=== PATIENT | female | born 1985 | race Caucasian/White ===

== ENCOUNTER → 2016-08-13 | Outpatient (CLI) | payer OTHER ==
[~2016-08-13] MED LIST: BAYE325T12 PO; PERC5TAB12 PO
--- NOTE | 2016-08-13 12:23 | REP ---
Obstetric ultrasound for anatomy: There is a single intrauterine gestation in a breech presentation. There is movement and cardiac activity, the heart rate is 153 beats per minute. The placenta is anterior. There is no placenta previa or abruptio. The placenta demonstrates grade zero maturity. The amniotic fluid volume subjectively is normal. The cervix measures 5.2 cm length. By today's ultrasound the gestational age is 18 weeks 3 days with an KHUSHBU of 01/11/2017. By LMP gestational age is 19 weeks 4 days. The weight is 276 grams (0 pounds, 9 ounces). This is the 30th percentile for 19 weeks 4 days. The following anatomic structures are identified and are unremarkable: Cranium, choroid plexus, cavum septum pellucidum, cerebellum, nuchal fold, facial profile, lungs, four-chamber heart, cardiac right and left ventricular outflow tracts, diaphragm, stomach, cord insertion, three-vessel cord, kidneys, bladder, spine and upper and lower extremities. The lip is not adequately demonstrated. Otherwise, there are no anomalies. Signed by Kleber Vergara MD 08/13/2016 12:15 P
== END ==
LOC: M RAD 11:00
PROVIDERS: ATTEND Advanced Practice Midwife
DX: Z36 Encounter for antenatal screening of mother (principal)

== ENCOUNTER → 2016-09-10 | Outpatient (REF) | payer OTHER | LOC: M LAB REF 12:48 | PROVIDERS: ATTEND Advanced Practice Midwife | DX: Z34.82 Encounter for supervision of other normal pregnancy, second trimester (principal) ==

== ENCOUNTER → 2016-09-17 | Outpatient (CLI) | payer OTHER ==
--- NOTE | 2016-09-17 16:51 | REP ---
Obstetric ultrasound for anatomy: There is a single intrauterine gestation in a breech presentation. There is motion. There is cardiac activity with a heart rate of 100.6 beats per minute. The placenta is anterior. There is no placenta previa or abruptio. Placenta demonstrates grade zero maturity. The amniotic fluid volume subjectively is normal. The cervix is 4.8 cm in length. Maternal adnexa and cul-de-sac are unremarkable. By today's ultrasound gestational age is 20-week 3 weeks 5 days with an KHUSHBU of 01/09/2017. According to the first ultrasound during this gestation the gestational age is 23 weeks 3 days. By LMP gestational age is 24 weeks 4 days. weight is 599 grams (1 pound, 5 ounces). This is the 14th percentile for 24 weeks 4 days (gestational age by LMP). The following anatomic structures are identified and are unremarkable: upper lip, cranium, choroid plexus, cavum septum pellucidum, intracranial lateral ventricles, cerebellum, facial profile, lungs, diaphragm, stomach, cord insertion, three-vessel cord, kidneys, bladder, spine and upper lower extremities. Suboptimally demonstrated are the four-chamber view of the heart and the cardiac left ventricular outflow tract. However, the structures are identified previously and unremarkable. Impression: There are no anomalies. On the prior study the upper lip was suboptimally demonstrated but is adequately demonstrated and unremarkable. The remainder of the anatomy previously was unremarkable. Signed by Kleber Vergara MD 09/17/2016 04:42 P
== END ==
LOC: M RAD 13:59
PROVIDERS: ATTEND Advanced Practice Midwife
DX: Z36 Encounter for antenatal screening of mother (principal)

== ENCOUNTER → 2016-10-08 | Outpatient (CLI) | payer OTHER ==
[2016-10-08 13:26] LABS: BASO % 0.3 % (0.0-1.0); EOS % 0.5 % (0.0-3.0); LARGE UNSTAINED CELL # 0.1 K/mm3 (0.0-0.4); LARGE UNSTAINED CELL % 0.7 % (0.0-4.0); LYMPH # 0.9 K/mm3 (1.5-6.5); LYMPH % 9.8 % (24.0-44.0); MEAN CORPUSCULAR HEMOGLOBIN 29.9 pg (27.0-33.0); MEAN CORPUSCULAR HGB CONC 33.6 g/dl (32.0-36.5); MONO # 0.3 K/mm3 (0.0-0.8); MONO % 3.8 % (0.0-5.0); NEUTROPHILS # 7.6 K/mm3 (1.8-7.7); PLATELET COUNT, AUTOMATED 156 k/mm3 (150-450); RED CELL DISTRIBUTION WIDTH 13.3 % (11.5-14.5)
== END ==
LOC: M SMT 08:17
PROVIDERS: ATTEND Advanced Practice Midwife
DX: Z34.83 Encounter for supervision of other normal pregnancy, third trimester (principal)

== ENCOUNTER → 2016-12-10 | Outpatient (REF) | payer OTHER | LOC: M LAB REF 17:04 | PROVIDERS: ATTEND Advanced Practice Midwife | DX: Z34.83 Encounter for supervision of other normal pregnancy, third trimester (principal) ==

== ENCOUNTER → 2016-12-14 | Outpatient (CLI) | payer OTHER ==
--- NOTE | 2016-12-14 14:31 | REP ---
OB ULTRASOUND: Real-time sonographic evaluation of the gravid uterus performed. There is a single living intrauterine gestation with an estimated gestational age is 37 weeks 1 day with EDC 01/03/2017. Today's measurements indicate appropriate growth. Biometry and Growth: BPD 85 mm = 34 weeks 1 day, 7th percentile HC 322 mm = 36 weeks 3 days, 38th percentile AC 317 mm = 35 weeks 4 days, 27th percentile FL 67 mm = 34 weeks 4 days, 13th percentile HC/AC ratio 1.02 within normal range. Estimated weight 2634 grams, 24th percentile. The upper lip, four chamber heart, stomach, bladder and spine are visualized and are grossly unremarkable, as are the kidneys. Cervical length: Closed and measures 3.2 cm in length. heart rate: 132 beats per minute. position: Vertex. Placenta: Anterior and grade 2 with no previa or abruption. Amniotic fluid: Amniotic fluid appears within normal limits, RAMY 13.2 within normal range of 7.5 to 24.4. S/D ratio 2.24 within normal range of 1.6 to 2.6. RI: 0.55 is slightly below normal range of 0.59 to 0.75. Signed by Kleber Carrasco MD 12/14/2016 05:21 P
== END ==
LOC: M RAD 12:54
PROVIDERS: ATTEND Advanced Practice Midwife
DX: Z36.2 Encounter for other antenatal screening follow-up (principal)

== ENCOUNTER 2017-01-02 17:04 | Outpatient (CLI) | payer OTHER ==
[~2017-01-02] VITALS: Ht 162.6 cm; Wt 83.4 kg
[2017-01-02 17:16] VITALS: BP 125/76
[2017-01-02 19:15] VITALS: BP 124/68
[2017-01-02 19:52] VITALS: BP 132/73
== END 2017-01-02 20:05 | disposition home or self-care (01) ==
LOC: M LDO 17:04
PROVIDERS: ATTEND Obstetrics & Gynecology
DX: O47.1 False labor at or after 37 completed weeks of gestation (principal); Z3A.39 39 weeks gestation of pregnancy

== ENCOUNTER 2017-01-10 09:09 | Inpatient (IN) | payer OTHER ==
[~2017-01-10] VITALS: Ht 162.6 cm; Wt 84.6 kg
[2017-01-10] VITALS (22 sets, daily range): BP systolic 104–134; BP diastolic 61–77
--- NOTE | 2017-01-10 10:51 | HPEPDOC ---
[facility] Medical History & Physical Date of Admission Jan 10, [address] Karin Sanchez Attending Physician: Doris Funez CNM History and Physical HISTORY & PHYSICAL EXAMINATION DATE OF ADMISSION: 01/10/2017 30-year-old, 3, para 1011, at 41 0/7 weeks gestation by last menstrual period of 03/29/2016 for an estimated date of delivery of 01/03/2017 presents for induction of labor for post dates. Upon evaluation, she is 2 cm, 70% effaced, -2 station. She reports active movement. Denies loss of fluid or bleeding. Denies contractions. Sono at 7 5/7 weeks confirmed her due date. Growth ultrasound at 36 weeks confirmed fetus in the 24th percent , EFW 2634 grams.Prepregnancy weight was 165. Total weight gain 22 pounds. She has been normotensive through the . Last office visit was at 40 weeks 0 days on 01/03/2017. This has been uncomplicated. History of shoulder dystocia and history of LSIL pap. Anatomy scan within normal limits. OB HISTORY: 12/2008 39 6/7 weeks 8lb 9 oz female with shoulder dystocia. Patient reports unsure of timing or severity. 07/2015 miscarriage and D&C at 12 2/7 weeks. ALLERGIES: NKDA MEDICAL/SURGICAL HISTORY: D and C, Bartholin gland drainage, colpo, right left fracture with [place] placement. FAMILY HISTORY: hypothyroidism. SOCIAL HISTORY: Single. Father of the baby is present at the bedside and mother is present and supportive. Denies tobacco, alcohol or drugs. History of HPV. OBJECTIVE: Labs are A+, antibody negative. Initial hemoglobin and hematocrit 12.7 and 37.1 with platelets of 176. Rubella immune. VDRL, hepatitis B, hepatitis C, HIV, gonorrhea, chlamydia all negative. Genetic screening declined. 1 hour GCT 81. Group B strep is negative. VITAL SIGNS: Stable. She is in no apparent distress. Abdomen is soft, gravid, nontender, longitudinal lie, vertex by [place]. Uterine irritability. heart 140, moderate variability with accelerations, category 1 tracing. Sterile vaginal exam: 2 cm, 70% effaced, -2 station, intact membranes and cephalic. ASSESSMENT: 31-year-old, 3, at 41 weeks 0 days gestation, induction of labor, category 1 tracing. PLAN: Admit to L and D per consultation Dr Sanchez with routine orders for induction of labor with Misoprostol. Consider Pitocin later. Patient plans relaxation and breathing techniques for labor coping. Anticipate normal spontaneous vaginal . Laboratory Data Labs 24H Laboratory Tests 2 01/10/17 09:18: Serology Scanned Report Hepatitis B Testing Home Medications No Active Prescriptions or Reported Meds Allergies Coded Allergies: No Known Allergies (Unverified , 03/25/14) Doris Funez CNM Jan 10, 2017 10:51
[2017-01-10] MEDS ORDERED: miSOPROStol 50 MCG 1/2 TAB (S0191) PO ONE (11:00)
[2017-01-10 11:08] LABS: MEAN CORPUSCULAR HEMOGLOBIN 25.1 pg (27.0-33.0); MEAN CORPUSCULAR HGB CONC 31.4 g/dl (32.0-36.5); MEAN CORPUSCULAR VOLUME 79.8 fl (80.0-96.0); PLATELET COUNT, AUTOMATED 166 10^3/uL (150-450); RED CELL DISTRIBUTION WIDTH 15.8 % (11.5-14.5); WHITE BLOOD COUNT 10.2 10^3/uL (4.0-10.0)
[2017-01-10] MEDS ORDERED: LR 1,000 ML IV SCH (15:23)
[2017-01-10] MEDS ORDERED: OXYTOCIN DRIP 30 UNITS in APPROPRIATE DILUENT 1 EA IV SCH (15:30)
--- NOTE | 2017-01-10 15:31 | IPNPDOC ---
Text Note Date of Service The patient was seen on 01/10/17. NOTE Patient ambulating in room at [facility]. Comfortable, talking. NAD. Questioned size of fetus. O: VSS FHR: 130, moderate variability, +accels, -decels CTX: 3-4 mins apart, lasting 60 seconds, mild to palpate SVE: 2-3 cm/70%/-1 EFW: 7 lbs A: 41 weeks gestation for induction of labor, Category 1 tracing. P: Start Pitocin, continue to monitor. Reassured EFW with sono ultrasound and leapolds. New FOB and proven pelvis. VS,Fishbone, I+O VS, Fishbone, I+O Laboratory Tests 01/10/17 10:52 Red Blood Count 3.67 L, Mean Corpuscular Volume 79.8 L, Mean Corpuscular Hemoglobin 25.1 L, Mean Corpuscular Hemoglobin Concent 31.4 L, Red Cell Distribution Width 15.8 H Vital Signs Date Time Temp Pulse Resp B/P (MAP) Pulse Ox O2 Delivery O2 Flow Rate FiO2 01/10/17 14:41 98.6 86 18 120/61 (80) I&O- Last 24 Hours up to 6 AM 01/11/17 06:00 Intake Total 360 ml Output Total 550 ml Balance -190 ml Doris Funez CNM Jan 10, 2017 15:31
--- NOTE | 2017-01-10 18:06 | IPNPDOC ---
Text Note Date of Service The patient was seen on 01/10/17. NOTE Patient breathing well with contractions. Supportive family at bedside. NAD. States she feels like her water broke. O: VSS FHR:140, moderate variability, + accels. CTX: 2-3 minutes apart, 60-90 sec, moderate to palpate. SVE: 3-4cm/80/-1/SROM Meconium stained. A: 41 weeks gestation in labor. Category 1 tracing, labor progress P: Continue Pitocin. Consult with NICU. Continue to provide supportive labor coping. VS,Fishbone, I+O VS, Fishbone, I+O Laboratory Tests 01/10/17 10:52 Red Blood Count 3.67 L, Mean Corpuscular Volume 79.8 L, Mean Corpuscular Hemoglobin 25.1 L, Mean Corpuscular Hemoglobin Concent 31.4 L, Red Cell Distribution Width 15.8 H Vital Signs Date Time Temp Pulse Resp B/P (MAP) Pulse Ox O2 Delivery O2 Flow Rate FiO2 01/10/17 17:33 98.8 79 18 122/73 (89) I&O- Last 24 Hours up to 6 AM 01/11/17 06:00 Intake Total 360 ml Output Total 650 ml Balance -290 ml Doris Funez CNM Jan 10, 2017 18:06
[2017-01-10] MEDS ORDERED: IBUPROFEN 800 MG TAB PO PRN (20:00)
[2017-01-10] MEDS ORDERED: DOCUSATE SODIUM 100 MG CAP PO PRN (20:00)
[2017-01-10] MEDS ORDERED: RHOGAM 300 MCG (1500 IU) INJ (J2790) IM SCH (20:00)
[2017-01-10] MEDS ORDERED: MOM 30ML SUSPENSION UDC PO PRN (20:00)
[2017-01-10] MEDS ORDERED: ACETAMINOPHEN 500 MG TAB PO PRN (20:00)
[2017-01-10] MEDS ORDERED: MEASLES,MUMPS,RUBELLA VACCINE INJ (MMR-II) (90707) SC SCH (20:00)
[2017-01-10] MEDS ORDERED: ANUSOL HC CREAM 30GM TOP PRN (20:00)
[2017-01-10] MEDS ORDERED: LIDOCAINE 1% MDV INJ 50 ML VIAL INFIL ONE (20:00)
[2017-01-10] MEDS ORDERED: DIBUCAINE 1% OINTMENT 30GM TOP PRN (20:00)
[2017-01-10] MEDS ORDERED: METHYLERGONOVINE MALEATE 0.2 MG TAB PO PRN (20:00)
--- NOTE | 2017-01-10 20:20 | DNPDOC ---
[facility] Delivery Note Delivery Note DATE OF DELIVERY: 01/10/2017 PREDELIVERY DIAGNOSIS: 41 0/7 weeks' gestation. Induction of labor for post dates. POST DELIVERY DIAGNOSIS: Delivered. PROCEDURE: Spontaneous vaginal delivery. PROVIDER: Candace CAGLE and Maritza Funez CNM ANESTHESIA: none. ESTIMATED BLOOD LOSS: 200 mL. FINDINGS: 7 pound 12 ounce female , Score 8/9, nuchal cord times 1, right posterior arm compound presentation. DELIVERY SUMMARY: Patient is a 31-year-old 3 now para 2012 who was admitted to labor and delivery for induction of labor. Induction was utilized by one dose of Misoprostol and IV Pitocin. SROM with some particulate mec at 1753. NICU notified. Strong maternal urge to push at 9cm, rim reduced with one push with patient's consent. Fully dilated at 1903. Live viable female delivered OA to [facility] with loose nuchal cord times one reduced manually with a right posterior arm compound presentation at 1906. Mouth and nares were bulb suctioned at perineum. Infant brought to maternal abdomen for transitioning. Cord was clamped times two and cut by CNM immediately. brought to warmer for assessment. Placenta, Vilma intact with three vessel cord delivered at 1928 with marginal insertion and calcifications. EBL 200ml. Fundus was firm with massage and IV Pitocin bolus with excellent hemostasis. Perineum and vagina were inspected and noted to have a first degree laceration repaired with 3-0 Vicryl rapide. Bilateral labial lacerations were noted, one interrupted stitch to left labial. Infant weighed 3510 grams/ 7lb 12 oz. Apgars 8/9. Mother is planning to breastfeed her daughter. Instruments, needles, and sponges were counted and verified. Doris Funez CNM Jan 10, 2017 20:20
[2017-01-11 06:29] VITALS: BP 111/65
[2017-01-11] MEDS ORDERED: TYLE325T5 PO (08:56)
[2017-01-11] MEDS ORDERED: ADVI200T PO (08:58)
[2017-01-11] MEDS ORDERED: PRENTAB9 PO (08:58)
[2017-01-11] MEDS ORDERED: PRENATAL VITAMINS CHEWABLE TABLET PO SCH (09:00)
[2017-01-11 18:17] VITALS: BP 115/69
== END 2017-01-11 19:15 | disposition home or self-care (01) | DRG 560 ==
LOC: M LDI 09:09 → M OBS 21:16
PROVIDERS: ADMIT Advanced Practice Midwife; ATTEND Advanced Practice Midwife
PROC: 10E0XZZ Delivery of Products of Conception, External Approach (ICD-10-PCS; principal; 2017-01-10)
PROC: 0HQ9XZZ Repair Perineum Skin, External Approach (ICD-10-PCS; 2017-01-10)
PROC: 3E033VJ Introduction of Other Hormone into Peripheral Vein, Percutaneous Approach (ICD-10-PCS; 2017-01-10)
PROC: 3E0DXGC Introduction of Other Therapeutic Substance into Mouth and Pharynx, External Approach (ICD-10-PCS; 2017-01-10)
DX: O48.0 Post-term pregnancy (principal); O32.6XX0 Maternal care for compound presentation, not applicable or unspecified; Z37.0 Single live birth; O69.82X0 Labor and delivery complicated by other cord entanglement, without compression, not applicable or unspecified; O70.0 First degree perineal laceration during delivery; Z3A.41 41 weeks gestation of pregnancy

== ENCOUNTER 2017-03-13 13:37 | Emergency (ER) | payer OTHER | END 2017-03-13 18:19 | disposition home or self-care (01) | LOC: M ED 13:37 | DX: G44.209 Tension-type headache, unspecified, not intractable (principal); M54.12 Radiculopathy, cervical region | CPT/HCPCS: 70450 ==

== ENCOUNTER → 2017-03-30 | Outpatient (REF) | payer OTHER | LOC: M LAB REF 13:29 | DX: Z12.4 Encounter for screening for malignant neoplasm of cervix (principal) ==

== ENCOUNTER → 2018-04-05 | Outpatient (REF) | payer OTHER ==
[~2018-04-05] MED LIST changes: +ADVI200T PO; +PRENTAB9 PO; +TYLE325T5 PO; +TYLE500T78 PO
[2018-04-07 14:17] LABS: HPV HYBRID CAPTURE II Negative (Negative)
== END ==
LOC: M LAB REF 10:05
PROVIDERS: ATTEND Advanced Practice Midwife
DX: Z12.4 Encounter for screening for malignant neoplasm of cervix (principal); Z11.51 Encounter for screening for human papillomavirus (HPV)

== ENCOUNTER → 2018-04-05 | Outpatient (REF) | payer OTHER ==
[2018-04-05 20:23] LABS: CHLAMYDIA DNA AMPLIFICATION NEGATIVE (NEGATIVE); GC DNA AMPLIFICATION NEGATIVE (NEGATIVE)
== END ==
LOC: M LAB REF 16:55
PROVIDERS: ATTEND Advanced Practice Midwife
DX: Z11.3 Encounter for screening for infections with a predominantly sexual mode of transmission (principal)

== ENCOUNTER 2019-01-27 12:32 | Emergency (ER) | payer BC, OTHER ==
[~2019-01-27] VITALS: Ht 162.6 cm; Wt 83.4 kg
[2019-01-27] MEDS ORDERED: PREN29CH2 PO (12:41)
[2019-01-27 13:17] LABS: BASO % 0.4 % (0.0-1.0); EOS % 0.5 % (0.0-3.0); HEMATOCRIT 40.5 % (36.0-47.0); HEMOGLOBIN 13.1 g/dl (12.0-15.5); LYMPH # 1.4 10^3/uL (1.5-5.0); LYMPH % 18.1 % (24.0-44.0); MEAN CORPUSCULAR HEMOGLOBIN 29.3 pg (27.0-33.0); MEAN CORPUSCULAR HGB CONC 32.3 g/dl (32.0-36.5); MEAN CORPUSCULAR VOLUME 90.6 fl (80.0-96.0); MONO # 0.5 10^3/uL (0.0-0.8); MONO % 6.1 % (0.0-5.0); NEUTROPHILS # 5.7 10^3/uL (1.5-8.5); NEUTROPHILS % 74.5 % (36.0-66.0); PLATELET COUNT, AUTOMATED 170 10^3/uL (150-450); RED BLOOD COUNT 4.47 10^6/uL (4.00-5.40); WHITE BLOOD COUNT 7.7 10^3/uL (4.0-10.0)
[2019-01-27 13:59] LABS: BLOOD UREA NITROGEN 18 MG/DL (7-18); CALCIUM LEVEL 9.1 MG/DL (8.5-10.1); CARBON DIOXIDE LEVEL 27 MEQ/L (21-32); CHLORIDE LEVEL 106 MEQ/L (98-107); CREATININE FOR GFR 0.73 MG/DL (0.55-1.30); GLOMERULAR FILTRATION RATE > 60.0 (>60); GLUCOSE, FASTING 81 MG/DL (70-100); HCG, SERUM QUANTITATIVE 20786 MIU/ML; SODIUM LEVEL 139 MEQ/L (136-145)
[2019-01-27 17:29] LABS: CHLAMYDIA DNA AMPLIFICATION NEGATIVE (NEGATIVE); GC DNA AMPLIFICATION NEGATIVE (NEGATIVE)
[2019-01-27 17:42] VITALS: BP 121/76
--- NOTE | 2019-01-28 06:42 | REP ---
Pelvic sonography: History: Vaginal bleeding. . Unknown dates. Transabdominal and transvaginal scanning are performed. A living single intrauterine gestation is confirmed. The crown-rump length of the embryonic pole is 6 mm. This corresponds with a gestational age estimate of 6 weeks 3 days. heart rate is documented at 109 beats per minute. A small subchorionic hemorrhage is visible measuring 1.7 x 2.7 x 1.4 cm to the left of the gestation. No extrauterine abnormalities observed. There is a 1.8 cm hypoechoic area in the left maternal ovary consistent with corpus luteum. Impression: Living single intrauterine gestation at 6 weeks 3 days by crown-rump length. KHUSHBU by sonography September 19, 2019. Small subchorionic hemorrhage. Electronically Signed by Hilario Concepcion MD 01/28/2019 08:44 A
== END 2019-01-27 17:51 | disposition home or self-care (01) ==
LOC: M ED 12:32
DX: O20.0 Threatened abortion (principal); O26.851 Spotting complicating pregnancy, first trimester; O26.899 Other specified pregnancy related conditions, unspecified trimester; R10.2 Pelvic and perineal pain; O20.8 Other hemorrhage in early pregnancy; Z3A.01 Less than 8 weeks gestation of pregnancy; Z79.899 Other long term (current) drug therapy

== ENCOUNTER → 2019-02-20 | Outpatient (CLI) | payer BC ==
[~2019-02-20] MED LIST changes: +PREN29CH2 PO
[2019-02-20 13:45] LABS: BASO % 0.5 % (0.0-1.0); EOS % 0.6 % (0.0-3.0); HEMATOCRIT 39.1 % (36.0-47.0); HEMOGLOBIN 12.6 g/dl (12.0-15.5); LYMPH % 15.9 % (24.0-44.0); MEAN CORPUSCULAR HEMOGLOBIN 29.4 pg (27.0-33.0); MEAN CORPUSCULAR HGB CONC 32.2 g/dl (32.0-36.5); MEAN CORPUSCULAR VOLUME 91.4 fl (80.0-96.0); MONO # 0.4 10^3/uL (0.0-0.8); MONO % 5.5 % (0.0-5.0); NEUTROPHILS # 4.9 10^3/uL (1.5-8.5); NEUTROPHILS % 77.2 % (36.0-66.0); PLATELET COUNT, AUTOMATED 140 10^3/uL (150-450); RED BLOOD COUNT 4.28 10^6/uL (4.00-5.40); WHITE BLOOD COUNT 6.4 10^3/uL (4.0-10.0)
[2019-02-20 15:31] LABS: CHLAMYDIA DNA AMPLIFICATION NEGATIVE (NEGATIVE); GC DNA AMPLIFICATION NEGATIVE (NEGATIVE)
[2019-02-21 13:44] LABS: HEPATITIS C VIRUS ABY INDEX < 0.0 INDEX (<0.8); HIV 1&2 SCREEN CENTAUR NEGATIVE (NEGATIVE); RUBELLA IgG QUALITATIVE IMMUNE (IMMUNE)
== END ==
LOC: M PLALAB 09:24
PROVIDERS: ATTEND Advanced Practice Midwife
DX: O26.851 Spotting complicating pregnancy, first trimester (principal); Z3A.00 Weeks of gestation of pregnancy not specified

== ENCOUNTER → 2019-04-19 | Outpatient (CLI) | payer BC ==
--- NOTE | 2019-04-19 11:23 | REP ---
Obstetric sonography: History: Supervision of for anatomy. Findings: Scanning through the gravid uterus demonstrates a viable single intrauterine gestation in a breech lie. motion is observed and heart rate is recorded at 135 beats per minute. An anterior grade 1 placenta is seen without evidence of previa. Amniotic fluid is subjectively normal. Closed cervical length is measured at 3.1 cm, viewed transabdominally. No extrauterine abnormalities observed. There are two tiny focal areas of increased echogenicity in the abdomen, one along the border of the stomach in the upper abdomen and the other in the central abdomen or upper pelvis anteriorly. These may be foci of peritoneal calcification. No other anomaly is seen. The following anatomic structures are identified and felt to be sonographically unremarkable: cranium, choroid plexus, cavum, cerebellum and posterior fossa, nuchal fold face and profile, four-chamber heart with left and right ventricular outflow tract views, diaphragm, left-sided stomach, abdominal wall cord insertion, three-vessel cord, kidneys and bladder, spine, upper and lower extremities. Biometry chart: BPD 3.7 cm = 17 weeks 2 days Head circumference 15.1 cm = 18 weeks 1 day Abdominal circumference 13.0 cm = 18 weeks 4 days Femur length 2.8 cm = 18 weeks 4 days Humeral length 2.9 cm = 19 weeks 4 days HC/AC ratio normal 1.16. Cephalic index 0.64 (0.70-0.86). Estimated weight 241 grams, 0 pounds 8 ounces, 34th percentile for 18 weeks 6 days. Impression: Viable single intrauterine gestation at 18 weeks 1 day by today's sonographic criteria. Expected gestational age estimate based on prior sonography is 18 weeks 6 days. KHUSHBU by prior sonography September 14, 2019. There are two tiny foci of increased echogenicity in the abdomen question peritoneal calcifications. Otherwise, anatomic survey is complete and unremarkable. Followup scan suggested.
== END ==
LOC: M WHC 08:46
PROVIDERS: ATTEND Advanced Practice Midwife
DX: Z34.82 Encounter for supervision of other normal pregnancy, second trimester (principal)

== ENCOUNTER → 2019-06-20 | Outpatient (REF) | payer BC ==
[2019-06-20 13:26] LABS: HEMATOCRIT 34.3 % (36.0-47.0); HEMOGLOBIN 10.9 g/dl (12.0-15.5); MEAN CORPUSCULAR HEMOGLOBIN 28.6 pg (27.0-33.0); MEAN CORPUSCULAR HGB CONC 31.8 g/dl (32.0-36.5); PLATELET COUNT, AUTOMATED 144 10^3/uL (150-450); RED BLOOD COUNT 3.81 10^6/uL (4.00-5.40); WHITE BLOOD COUNT 8.9 10^3/uL (4.0-10.0)
== END ==
LOC: M PLALAB 11:17
PROVIDERS: ATTEND Advanced Practice Midwife
DX: Z34.82 Encounter for supervision of other normal pregnancy, second trimester (principal)

== ENCOUNTER → 2019-08-20 | Outpatient (CLI) | payer BC ==
--- NOTE | 2019-08-20 11:50 | REP ---
REASON: Size/date discrepancy. Multiple ultrasonographic images of the gravid uterus shows a single living intrauterine gestation in the transverse head to the maternal left position. Doppler interrogation of the heart shows a heart rate of 134 beats per minute. The subjective amniotic fluid volume is within normal limits. The calculated amniotic fluid index is 14.6 with an expected range 7.6 to 24.7. The cervix measures 3.6 cm in length and is closed. The placenta is anterior and not low-lying. Evaluation of the maternal adnexal spaces show no gross abnormalities. BPD 8.9 cm = 36 weeks 0 days HC 31.7 cm = 35 weeks 5 days AC 32.5 cm = 36 weeks 3 days FL 7.0 cm = 36 weeks 0 days The estimated weight is 2872 grams which is at the 48th percentile for a 65-nuqd-6-day gestational age. IMPRESSION: Limited OB ultrasound as described above.
== END ==
LOC: M WHC 09:04
PROVIDERS: ATTEND Obstetrics & Gynecology
DX: O26.843 Uterine size-date discrepancy, third trimester (principal)

== ENCOUNTER → 2019-08-22 | Outpatient (REF) | payer BC | LOC: M PLALAB 15:37 | PROVIDERS: ATTEND Advanced Practice Midwife | DX: Z34.83 Encounter for supervision of other normal pregnancy, third trimester (principal); Z3A.00 Weeks of gestation of pregnancy not specified ==

== ENCOUNTER 2019-08-31 21:41 | Outpatient (CLI) | payer BC ==
[~2019-08-31] VITALS: Ht 162.6 cm; Wt 91.0 kg
[2019-08-31 21:56] VITALS: BP 118/64
[2019-08-31 22:35] VITALS: BP 106/58
--- NOTE | 2019-08-31 22:40 | IPNPDOC ---
Text Note Date of Service The patient was seen on 08/31/19. NOTE Outpatient 34yo KHUSHBU 09/19/2019. Presents @ 37w2d with complaints of irregular cramps, contractions and occasional sharp pelvic discomfort. Denies LOF, bleeding. Reports fetus is active NAD, VSS Cat I tracing Rare mild UC SVE parous, LTC, OOP Discharged home. Routine precautions. Keep appt next week. Doris Funez CNM Aug 31, 2019 22:40
== END 2019-08-31 22:50 | disposition home or self-care (01) ==
LOC: M LDO 21:41 → EEVIPCON 21:41 → M LDO 22:50
PROVIDERS: ATTEND Advanced Practice Midwife
DX: O26.893 Other specified pregnancy related conditions, third trimester (principal); Z3A.37 37 weeks gestation of pregnancy
CPT/HCPCS: 59025; G0378; G0463

== ENCOUNTER 2019-09-13 00:10 | Inpatient (IN) | payer BC ==
[2019-09-13] MEDS ORDERED: miSOPROStol 50 MCG 1/2 TAB (S0191) As Ordered ONE (01:29)
[2019-09-13] MEDS ORDERED: OXYTOCIN 30 UNITS IN 0.9% NaCl 500ML IV BAG (J2590) As Ordered ONE (09:53)
[2019-09-13] MEDS ORDERED: LIDOCAINE 1% MDV 20ML VIAL As Ordered ONE (19:32)
[2019-09-14] MEDS ORDERED: IBUPROFEN 800 MG TAB ONE (21:08)
[2019-09-15] MEDS ORDERED: IBUPROFEN 800 MG TAB ONE ×2 (10:57→14:34)
[2019-09-15] MEDS ORDERED: IBUPROFEN 800 MG TAB As Ordered ONE ×2 (10:57→14:34)
[2019-10-21 13:41] LABS: HEMATOCRIT 38.8 % (36.0-47.0); HEMOGLOBIN 12.5 g/dl (12.0-15.5); MEAN CORPUSCULAR HEMOGLOBIN 26.6 pg (27.0-33.0); MEAN CORPUSCULAR HGB CONC 32.2 g/dl (32.0-36.5); MEAN CORPUSCULAR VOLUME 82.6 fl (80.0-96.0); WHITE BLOOD COUNT 6.9 10^3/uL (4.0-10.0)
[2019-10-21 13:43] LABS: PLATELET COUNT, AUTOMATED 99 10^3/uL (150-450)
[2019-12-05 14:08] LABS: CORD GAS ABE A -5.2; CORD GAS HCO3 A 21.1 MEQ/L; CORD GAS PCO2 A 43.3 mmHg; CORD GAS PH A 7.305 UNITS; CORD GAS PO2 A 29.5 mmHg; CORD GAS SBC A 19.5 MEQ/L; CORD GAS TCO2 A 22.4 MEQ/L
[2019-12-05 14:09] LABS: CORD GAS ABE V -1.8; CORD GAS HCO3 V 24.4 MEQ/L; CORD GAS O2 SAT A 67.4 %; CORD GAS PCO2 V 45.9 mmHg; CORD GAS PH V 7.343 UNITS; CORD GAS TCO2 V 25.8 MEQ/L
[2019-12-05 14:10] LABS: CORD GAS O2 SAT V 63.3 %
== END 2019-09-15 11:00 | disposition home or self-care (01) | DRG 560 ==
LOC: M LDI 00:10 → UNDODISIN 09-15 11:00
PROVIDERS: ADMIT Advanced Practice Midwife; ATTEND Advanced Practice Midwife
PROC: 10E0XZZ Delivery of Products of Conception, External Approach (ICD-10-PCS; principal; 2019-09-13)
PROC: 10907ZC Drainage of Amniotic Fluid, Therapeutic from Products of Conception, Via Natural or Artificial Opening (ICD-10-PCS; 2019-09-13)
PROC: 3E033VJ Introduction of Other Hormone into Peripheral Vein, Percutaneous Approach (ICD-10-PCS; 2019-09-13)
DX: O66.0 Obstructed labor due to shoulder dystocia (principal); O77.0 Labor and delivery complicated by meconium in amniotic fluid; Z37.0 Single live birth; Z3A.39 39 weeks gestation of pregnancy; O69.82X0 Labor and delivery complicated by other cord entanglement, without compression, not applicable or unspecified

== ENCOUNTER → 2019-12-20 | Outpatient (REF) | payer BC ==
[2019-12-20 14:07] LABS: HEMATOCRIT 38.8 % (36.0-47.0); HEMOGLOBIN 11.9 g/dl (12.0-15.5); MEAN CORPUSCULAR HEMOGLOBIN 26.4 pg (27.0-33.0); MEAN CORPUSCULAR HGB CONC 30.7 g/dl (32.0-36.5); MEAN CORPUSCULAR VOLUME 86.2 fl (80.0-96.0); PLATELET COUNT, AUTOMATED 158 10^3/uL (150-450); WHITE BLOOD COUNT 6.1 10^3/uL (4.0-10.0)
[2019-12-20 14:35] LABS: FREE T4 0.88 NG/DL (0.76-1.46); THYROID STIMULATING HORMONE 2.91 uIU/ML (0.358-3.740)
== END ==
LOC: M PLALAB 09:17
PROVIDERS: ATTEND Obstetrics & Gynecology
DX: N93.9 Abnormal uterine and vaginal bleeding, unspecified (principal)

== ENCOUNTER → 2019-12-20 | Outpatient (CLI) | payer BC ==
--- NOTE | 2019-12-20 11:22 | REP ---
INDICATION: N93.9 AUB. COMPARISON: None. TECHNIQUE: Transabdominal and transvaginal scanning were performed. FINDINGS: Uterine dimensions are normal at 9.4 x 5.2 x 6.8 cm. Endometrial echo is 17 mm thick and centrally placed. No free fluid is seen in the cul-de-sac. The bladder measures 6.4 x 7.3 x 3.4 cm. The right ovary has dimensions of 2.9 x 1.9 x 2.0 cm. It's Doppler flow is normal with a resistive index of 0.47. The left ovary dimensions are normal as well at 2.5 x 1.7 x 2.8 cm. It's Doppler flow was normal with resistive index of 0.49. Complex dominant follicle the left ovary measures 2.3 cm in diameter. IMPRESSION: Endometrial thickness of 17 mm with no endometrial fluid collection. No adnexal mass or free fluid. <Electronically signed by Kleber Carrasco > 12/20/19 1119
== END ==
LOC: M WHC 08:46
PROVIDERS: ATTEND Obstetrics & Gynecology
DX: N93.9 Abnormal uterine and vaginal bleeding, unspecified (principal)

== ENCOUNTER → 2020-01-13 | Outpatient (CLI) | payer BC ==
[~2020-01-13] MED LIST changes: +CYCL-707; +MULTCAP PO
== END ==
LOC: M LABSMTC 08:43
PROVIDERS: ATTEND Anesthesiology
DX: Z01.812 Encounter for preprocedural laboratory examination (principal); Z20.828 Contact with and (suspected) exposure to other viral communicable diseases

== ENCOUNTER 2020-01-18 08:34 | Day surgery (SDC) | payer BC ==
[~2020-01-18] VITALS: Ht 165.1 cm; Wt 80.3 kg
[~2020-01-18 08:34] MED LIST changes: +ceFAZolin SOD 2 GM in IV 1 EA IV ONE
[2020-01-18] MEDS ORDERED: LR 1,000 ML IV ONE (09:00)
[2020-01-18 09:14] LABS: HEMATOCRIT 39.4 % (36.0-47.0); HEMOGLOBIN 12.2 g/dl (12.0-15.5); MEAN CORPUSCULAR HEMOGLOBIN 26.4 pg (27.0-33.0); MEAN CORPUSCULAR VOLUME 85.3 fl (80.0-96.0); PLATELET COUNT, AUTOMATED 146 10^3/uL (150-450); RED BLOOD COUNT 4.62 10^6/uL (4.00-5.40); WHITE BLOOD COUNT 5.6 10^3/uL (4.0-10.0)
[2020-01-18 09:43] LABS: HCG, SERUM QUALITATIVE NEGATIVE (NEGATIVE)
[2020-01-18] MEDS ORDERED: BUPIVACAINE HCL 0.25% 30ML VIAL As Ordered ONE (09:52)
[2020-01-18] MEDS ORDERED: METHYLENE BLUE 0.5% (5MG/ML) 10 ML AMP (PROVAYBLUE) As Ordered ONE (09:52)
[2020-01-18] MEDS ORDERED: METOCLOPRAMIDE INJ 10MG/2ML VIAL (J2765 PER 1) As Ordered ONE (10:29)
[2020-01-18] MEDS ORDERED: MIDAZOLAM INJ 2MG/2ML VIAL (J2250 PER 1MG) As Ordered ONE (10:29)
[2020-01-18] MEDS ORDERED: HYDROmorphone HCL 2 MG/ML 1ML VIAL (J1170) As Ordered ONE (10:29)
[2020-01-18] MEDS ORDERED: fentaNYL 250 MCG/5 ML INJECTION (J3010) As Ordered ONE (10:29)
[2020-01-18] MEDS ORDERED: SUGAMMADEX SODIUM 500 MG/5 ML VIAL (BRIDION) As Ordered ONE (10:29)
[2020-01-18] MEDS ORDERED: propofoL 200 MG/20 ML VIAL As Ordered ONE (10:29)
[2020-01-18] MEDS ORDERED: ROCURONIUM BROMIDE 50 MG/5 ML VIAL As Ordered ONE (10:29)
[2020-01-18] MEDS ORDERED: ONDANSETRON 4MG/2ML VIAL As Ordered ONE (10:29)
[2020-01-18] MEDS ORDERED: LIDOCAINE 2% 100MG/5ML SDV (FOR ANES.) As Ordered ONE (10:29)
[2020-01-18] MEDS ORDERED: dexameTHASONE 4 MG/ML 1ML VIAL (J1100 PER 1MG) As Ordered ONE (10:29)
[2020-01-18] MEDS ORDERED: ACETAMINOPHEN 1000MG 100ML IV BTL (OFIRMEV) (J0131 PER 10MG) As Ordered ONE (11:23)
[2020-01-18] MEDS ORDERED: KETOROLAC 60MG 2ML VIAL As Ordered ONE (11:24)
--- NOTE | 2020-01-18 12:19 | ROOPDOC ---
[facility] Report Of Operation Report of Operation DATE OF PROCEDURE: 01/18/2020 PREPROCEDURE DIAGNOSES: Abnormal uterine bleeding, chronic pelvic pain. POSTPROCEDURE DIAGNOSES: Same. PROCEDURE: Robotic-assisted total laparoscopic hysterectomy, bilateral salpingectomy, left ovarian cystectomy, cystoscopy SURGEON: Eliecer Reyes D.O. FACOG SUPERVISOR CELL OPERATION: Cristine Ross ANESTHESIA: General endotracheal. ESTIMATED BLOOD LOSS: Approximately 150 mL. FLUIDS REPLACED: 1600 mL LR URINE OUTPUT: 50 mL COMPLICATIONS: None. FINDINGS: Normal-appearing ovaries bilaterally. Uterus was approximately 10-12 centimeters in greatest dimension. 3-4 cm left ovarian cyst well demarcated and circumscribed and mobile (excised) Cystoscopy: Bilateral ureteral orifice efflux, no bladder injury/suture material. PREOPERATIVE ANTIBIOTIC PROPHYLAXIS: Ancef 2 g IV 1. SPECIMEN(S): Uterus w/ cervix, bilateral fallopian tubes DESCRIPTION OF PROCEDURE: The patient was counseled, consented on the respective benefits, indications, alternatives of procedure. Informed consent was obtained. She was taken to the operating room with an IV running. She was placed on the operating table in dorsal supine position. Gen. anesthesia was administered and the airway was secured without any difficulty. She was placed in the low lithotomy position. . She was prepared and draped in the normal sterile fashion. A time out was performed per protocol. A Bonilla catheter was placed under sterile conditions. A sterile speculum was placed resulting in good visualization of the cervix. A single-tooth tenaculum was used to grasp the anterior lip cervix. The cervix was sequentially dilated with Kiko dilators. A V-Care uterine manipulator was placed without any difficulty. The single-tooth tenaculum was removed, as well as the speculum. A sterile glove switch was performed. Attention was turned to the abdomen. A 2mm incision was made in the umbilicus, and through this incision a Veress needle was inserted into the intraperitoneal cavity. Intraperitoneal placement was confirmed with ease of flow of normal saline, positive drop test, no return on aspiration, and an opening pressure of less than 10 mmHg upon initial insufflation. The abdomen was insufflated with 2 L of gas. The Veress needle was removed. A supraumbilical 8 mm incision was made. Through this incision, the robotic trochar/cannula was inserted into the intraperitoneal cavity under direct visualization. No incidental bleeding nor injury was noted. Patient was placed in 30 Trendelenburg. The right and left trocars/cannulas were placed on both the right and left side through 8 mm incisions, guided by laparoscopic visualization. No incidental bleeding nor injury was noted. The robot was docked in typical fashion. The instruments were inserted, guided by laparoscopic visualization. My attention was turned to the robotic console. Using the vessel sealer device, the right and left fallopian tubes were amputated. The fallopian tubes were brought through the assist-port cannula without any difficulty. The right utero-ovarian ligament and right round ligament were sequentially clamped, co agulated and transected with the vessel sealer device. The vesicouterine peritoneum was dissected with the vessel sealer device to create the bladder flap, thus mobilizing the lower uterine segment and cervix off of the bladder. The right uterine vasculature was sequentially clamped, coagulated and transected above the colpotomy cup. The left utero-ovarian ligament and left round ligament were sequentially clamped, coagulated and transected with the vessel sealer device. The remainder of the bladder flap was dissected using the vessel sealer device and blunt dissection. The left uterine vasculature was sequentially clamped, coagulated and transected above the colpotomy cup. The outline of the entire V- care colpotomy cup was able to be delineated. Excell ent blanching of the uterus was noted. A circumferential colpotomy was performed using the da Esvin monopolar regina, following the contour of the cup. The amputated cervix and uterus were brought through the colpotomy into and out of the vagina, intact as one unit. Attention was turned to the left ovarian cystectomy. The monopolar regina were used to dissect around the interface between normal ovarian cortex and the cystic wall. The cyst was mobilized off the ovary without any difficulty, but did incidentally rupture clear serous fluid. The cystic tissue was placed inside the vagina through the colpotomy, then out of the vagina. The colpotomy was closed with the V-lock barbed suture in running fashion, thus creating the vaginal cuff. Excellent hemostasis was noted throughout the steps above. Brooks was placed over the vaginal cuff to ensure hemostasis. The instruments were removed from the abdomen and the robot was un-docked. The gas was released from the abdomen and the patient was taken out of Trendelenburg. I re-scrubbed, and attention was turned to the pelvis. The Bonilla catheter was removed. The cystoscope was placed transurethrally into the bladder and normal saline was instilled. No bladder injury/suture material was noted. IV methylene blue had been administered by anesthesia and bilateral UO efflux was confirmed. The fluid was drained out of the bladder through the cystoscope device, then the cystoscope was removed. The vagina was copiously irrigated. A sterile digital vaginal exam revealed no significant bleeding and an intact vaginal cuff. A sterile glove switch was performed. The da Esvin cannulas were removed. The skin incisions were closed with 4-0 Monocryl in subcuticular fashion. Sponge, needle and instrument counts were correct per protocol. The patient tolerated the entire procedure very well. She was transferred to the PACU in good and stable condition. Eliecer Reyes DO [facility] [place] ELIECER REYES DO Jan 18, 2020 12:19
[2020-01-18] MEDS ORDERED: PERC5TAB12 PO (12:20)
[2020-01-18] MEDS ORDERED: IBUP80TA PO (12:21)
[2020-01-18] MEDS ORDERED: COLA100C5 PO (12:22)
[2020-01-18] MEDS ORDERED: HYDROMORPHONE HCL 0.5 MG/ 0.5 ML SYRINGE (J1170 PER 1) IV PRN (12:45)
[2020-01-18] MEDS ORDERED: PERCOCET 5MG/325MG TAB PO PRN (12:45)
[2020-01-18] MEDS ORDERED: oxyCODONE 5MG TAB PO PRN (12:45)
[2020-01-18] MEDS ORDERED: KETOROLAC 30 MG/ML 1ML VIAL IV PRN (12:45)
[2020-01-18] MEDS ORDERED: ONDANSETRON 4MG/2ML VIAL IV PRN ×2 (12:45)
[2020-01-18] MEDS ORDERED: DOCUSATE SODIUM 100MG CAPSULE PO PRN (12:45)
[2020-01-18] MEDS ORDERED: LR 1,000 ML IV SCH ×2 (12:45)
[2020-01-18] MEDS ORDERED: fentaNYL 100 MCG/2 ML INJECTION (J3010) IV PRN (12:45)
[2020-01-18] MEDS ORDERED: PROMETHAZINE INJ 25 MG/ML VIAL (J2550) IV PRN (12:45)
[2020-01-18] MEDS ORDERED: diphenhydrAMINE 50MG/ML VIAL (J1200) IV PRN (12:45)
[2020-01-18 16:00] VITALS: BP 113/62
== END 2020-01-18 16:00 | disposition home or self-care (01) ==
LOC: M SDC 08:34
PROVIDERS: ATTEND Obstetrics & Gynecology
DX: N93.9 Abnormal uterine and vaginal bleeding, unspecified (principal); R10.2 Pelvic and perineal pain; N83.12 Corpus luteum cyst of left ovary; F32.9 Major depressive disorder, single episode, unspecified; Z79.899 Other long term (current) drug therapy
CPT/HCPCS: 36415; 58571; 58662; 81025; 84703; 85027; 86850; 86900; 86901; 88305; 88307; J0131; J0690; J1100; J1170; J1885; J2250; J2405; J2765; J3010; Q9968; S2900

== ENCOUNTER → 2020-02-04 | Outpatient (REF) | payer BC ==
[~2020-02-04] MED LIST changes: +COLA100C5 PO; +IBUP80TA PO; -ceFAZolin SOD 2 GM in IV 1 EA IV ONE
[2020-02-04 15:24] LABS: ESTRADIOL 47.7 PG/ML; LUTEINIZING HORMONE 10.7 mIU/mL; THYROID STIMULATING HORMONE 0.885 uIU/ML (0.358-3.740)
== END ==
LOC: M PLALAB 13:11
PROVIDERS: ATTEND Obstetrics & Gynecology
DX: F32.9 Major depressive disorder, single episode, unspecified (principal)

== ENCOUNTER → 2022-12-14 | Outpatient (CLI) | payer BC | LOC: M RAD 07:03 | PROVIDERS: ATTEND Obstetrics & Gynecology | DX: R10.2 Pelvic and perineal pain (principal); Z90.710 Acquired absence of both cervix and uterus ==

== ENCOUNTER → 2023-11-08 | Outpatient (CLI) | payer BC | LOC: M WHC 06:53 | PROVIDERS: ATTEND Obstetrics & Gynecology | DX: Z12.31 Encounter for screening mammogram for malignant neoplasm of breast (principal); N63.11 Unspecified lump in the right breast, upper outer quadrant; Z80.3 Family history of malignant neoplasm of breast ==

== ENCOUNTER → 2023-11-23 | Outpatient (CLI) | payer BC | LOC: M WHC 09:19 | PROVIDERS: ATTEND Obstetrics & Gynecology | DX: N63.11 Unspecified lump in the right breast, upper outer quadrant (principal); N63.21 Unspecified lump in the left breast, upper outer quadrant; Z80.3 Family history of malignant neoplasm of breast | CPT/HCPCS: 76642; 77066; G0279 ==

== ENCOUNTER → 2023-12-21 | Outpatient (REF) | payer BC ==
[2023-12-21 18:06] LABS: C REACTIVE PROTEIN QUANTITATIV 4.7 MG/DL (<1.0)
[2023-12-21 18:07] LABS: MAGNESIUM LEVEL 2.2 MG/DL (1.8-2.4); PERCENT SATURATION 8.9 % (13.2-45.0); PHOSPHORUS LEVEL 3.2 MG/DL (2.5-4.9)
[2023-12-21 18:08] LABS: FERRITIN 126.2 NG/ML (7.3-270.7); TOTAL 25(OH) VITAMIN D 31.6 NG/ML (20.0-100.0)
== END ==
LOC: M SFHCRHEU 14:41
PROVIDERS: ATTEND Internal Medicine
DX: M54.9 Dorsalgia, unspecified (principal); M79.10 Myalgia, unspecified site

== ENCOUNTER → 2024-02-02 | Outpatient (CLI) | payer BC | LOC: M PLARAD 10:44 | PROVIDERS: ATTEND Internal Medicine | DX: M54.9 Dorsalgia, unspecified (principal); M46.98 Unspecified inflammatory spondylopathy, sacral and sacrococcygeal region ==

== ENCOUNTER → 2024-03-23 | Outpatient (REF) | payer BC ==
[~2024-03-23] MED LIST changes: -BAYE325T12 PO; +BAYE325T2 PO
[2024-03-23 19:04] LABS: BASO # 0.1 10^3/uL (0.0-0.2); BASO % 0.5 % (0.0-1.0); EOS # 0.1 10^3/uL (0.0-0.5); HEMATOCRIT 41.2 % (36.0-47.0); HEMOGLOBIN 13.6 g/dl (12.0-15.5); LYMPH # 1.9 10^3/uL (1.5-5.0); LYMPH % 20.1 % (24.0-44.0); MEAN CORPUSCULAR HEMOGLOBIN 28.8 pg (27.0-33.0); MEAN CORPUSCULAR VOLUME 87.3 fl (80.0-96.0); MONO # 0.6 10^3/uL (0.0-0.8); MONO % 5.9 % (2.0-8.0); NEUTROPHILS # 6.8 10^3/uL (1.5-8.5); NEUTROPHILS % 72.2 % (36.0-66.0); PLATELET COUNT, AUTOMATED 202 10^3/uL (150-450); RED BLOOD COUNT 4.72 10^6/uL (4.00-5.40); WHITE BLOOD COUNT 9.4 10^3/uL (4.0-10.0)
[2024-03-23 19:22] LABS: PERCENT SATURATION 32.5 % (13.2-45.0)
== END ==
LOC: M SFHCRHEU 15:21
PROVIDERS: ATTEND Internal Medicine
DX: E61.1 Iron deficiency (principal)

== ENCOUNTER → 2024-04-09 | Outpatient (CLI) | payer BC | LOC: M SLEEP HO 10:49 | PROVIDERS: ATTEND Internal Medicine | DX: R53.83 Other fatigue (principal); R06.83 Snoring ==